=== PATIENT | female | born 1955 | race Caucasian/White ===

== ENCOUNTER → 2016-07-14 | Outpatient (REF) | payer OTHER | LOC: M SFHCPLAZ 15:35 | PROVIDERS: ATTEND Nurse Practitioner Adult Health | DX: R53.83 Other fatigue (principal) ==

== ENCOUNTER → 2016-08-29 | Outpatient (CLI) | payer OTHER ==
--- NOTE | 2016-08-29 16:58 | REP ---
Chest x-ray: Two views. History: Moderate, persistent asthma. . Comparison study: November 10, 2012 . Findings: The lungs are mildly hyper inflated and free of infiltrate. The pleural angles are sharp. The heart size is normal. Pulmonary vasculature is not increased. No significant bony abnormality is seen. Impression: Mild hyperinflation, otherwise negative chest x-ray. Signed by Dharmesh Hallman MD 08/29/2016 04:49 P
== END ==
LOC: M RAD 15:07
PROVIDERS: ATTEND Internal Medicine Pulmonary Disease
DX: J45.40 Moderate persistent asthma, uncomplicated (principal)

== ENCOUNTER → 2016-12-23 | Outpatient (REF) | payer OTHER | LOC: M SFHCPLAZ 17:24 | PROVIDERS: ATTEND Nurse Practitioner Adult Health | DX: J04.0 Acute laryngitis (principal) ==

== ENCOUNTER → 2017-05-27 | Outpatient (REF) | payer OTHER | LOC: M SFHCPLAZ 14:56 | PROVIDERS: ATTEND Internal Medicine | DX: E78.00 Pure hypercholesterolemia, unspecified (principal); J45.909 Unspecified asthma, uncomplicated; M85.80 Other specified disorders of bone density and structure, unspecified site; R94.6 Abnormal results of thyroid function studies; Z53.9 Procedure and treatment not carried out, unspecified reason ==

== ENCOUNTER → 2017-06-02 | Outpatient (REF) | payer OTHER ==
[2017-06-02 13:29] LABS: MEAN CORPUSCULAR HEMOGLOBIN 31.7 pg (27.0-33.0); MEAN CORPUSCULAR HGB CONC 33.2 g/dl (32.0-36.5); MEAN CORPUSCULAR VOLUME 95.7 fl (80.0-96.0); PLATELET COUNT, AUTOMATED 279 10^3/uL (150-450); RED CELL DISTRIBUTION WIDTH 12.7 % (11.5-14.5); WHITE BLOOD COUNT 4.3 10^3/uL (4.0-10.0)
[2017-06-02 13:50] LABS: ALBUMIN 4.2 GM/DL (3.2-5.2); ALKALINE PHOSPHATASE 85 U/L (45-117); ALT/SGPT 18 U/L (12-78); ANION GAP 8 MEQ/L (8-16); AST/SGOT 19 U/L (7-37); BILIRUBIN,TOTAL 0.5 MG/DL (0.2-1.0); BLOOD UREA NITROGEN 17 MG/DL (7-18); CARBON DIOXIDE LEVEL 29 MEQ/L (21-32); CHLORIDE LEVEL 108 MEQ/L (98-107); CHOLESTEROL LEVEL 220 MG/DL (<200); CREATININE FOR GFR 0.71 MG/DL (0.55-1.02); GLOMERULAR FILTRATION RATE > 60.0 (>45); GLUCOSE, FASTING 92 MG/DL (80-110); POTASSIUM SERUM 3.7 MEQ/L (3.5-5.1); SODIUM LEVEL 145 MEQ/L (136-145); TOTAL PROTEIN 7.2 GM/DL (6.4-8.2); TRIGLYCERIDES LEVEL 58 MG/DL (<150)
== END ==
LOC: M SFHCPLAZ 07:50
PROVIDERS: ATTEND Internal Medicine
DX: Z00.00 Encounter for general adult medical examination without abnormal findings (principal); E78.00 Pure hypercholesterolemia, unspecified; J45.909 Unspecified asthma, uncomplicated; R94.6 Abnormal results of thyroid function studies; M85.80 Other specified disorders of bone density and structure, unspecified site

== ENCOUNTER 2017-06-14 11:21 | Emergency (ER) | payer OTHER ==
[2017-06-14 11:57] LABS: BASO % 0.1 % (0.0-1.0); HEMATOCRIT 38.2 % (36.0-47.0); HEMOGLOBIN 12.9 g/dl (12.0-16.0); IMMATURE GRANULOCYTE # 0.1 10^3/uL (0-0); IMMATURE GRANULOCYTE % 0.5 % (0-0); LYMPH # 1.3 10^3/uL (1.5-4.5); LYMPH % 11.3 % (24.0-44.0); MEAN CORPUSCULAR HGB CONC 33.8 g/dl (32.0-36.5); MEAN CORPUSCULAR VOLUME 94.8 fl (80.0-96.0); MONO # 1.1 10^3/uL (0.0-0.8); MONO % 9.6 % (0.0-5.0); NEUTROPHILS # 9.1 10^3/uL (1.8-7.7); NEUTROPHILS % 78.5 % (36.0-66.0); PLATELET COUNT, AUTOMATED 194 10^3/uL (150-450); RED BLOOD COUNT 4.03 10^6/uL (4.00-5.40); RED CELL DISTRIBUTION WIDTH 12.5 % (11.5-14.5); WHITE BLOOD COUNT 11.6 10^3/uL (4.0-10.0)
[2017-06-14 12:09] LABS: INR 1.03; PROTHROMBIN TIME 13.7 SECONDS (12.4-14.5)
[2017-06-14 12:15] LABS: D-DIMER QUANT 521.3 ng/ml (<500)
[2017-06-14] MEDS: KETOROLAC 30 MG/ML VIAL (J1885) IV (12:24)
[2017-06-14] MEDS: NS 1,000 ML IV ×2 (12:25→14:42)
[2017-06-14] MEDS: METOCLOPRAMIDE INJ 10MG/2ML VIAL (J2765) IV (12:25)
[2017-06-14] MEDS: diphenhydrAMINE INJ 50MG/ML VIAL (J1200) IV (12:25)
[2017-06-14 12:26] LABS: ALBUMIN 3.4 GM/DL (3.2-5.2); ALBUMIN/GLOBULIN RATIO 0.97 (1.00-1.93); ALKALINE PHOSPHATASE 81 U/L (45-117); ALT/SGPT 13 U/L (12-78); ANION GAP 8 MEQ/L (8-16); AST/SGOT 11 U/L (7-37); BILIRUBIN,DIRECT 0.2 MG/DL (0.0-0.2); BILIRUBIN,TOTAL 0.8 MG/DL (0.2-1.0); BLOOD UREA NITROGEN 11 MG/DL (7-18); CALCIUM LEVEL 8.4 MG/DL (8.8-10.2); CARBON DIOXIDE LEVEL 29 MEQ/L (21-32); CHLORIDE LEVEL 105 MEQ/L (98-107); CPK CREATINE PHOSPHOKINASE 22 U/L (26-192); CREATININE FOR GFR 0.66 MG/DL (0.55-1.02); GLOMERULAR FILTRATION RATE > 60.0 (>45); GLUCOSE, FASTING 113 MG/DL (80-110); LIPASE 97 U/L (73-393); POTASSIUM SERUM 3.6 MEQ/L (3.5-5.1); SODIUM LEVEL 142 MEQ/L (136-145); TOTAL PROTEIN 6.9 GM/DL (6.4-8.2); TROPONIN I < 0.02 NG/ML (< 0.10)
[2017-06-14 12:31] LABS: MB/CK RELATIVE INDEX 4.54 (< OR =4); NT-PRO BNP 167 PG/ML (<125)
[2017-06-14] MEDS ORDERED: ISOVUE-370 76% 100ML VIAL (Q9967) As Ordered (13:34)
[2017-06-14] MEDS: MAG SULF 1GM/100ML (MAG RUN) 1 GM in APPROPRIATE DILUENT 1 EA IV (14:01)
[2017-06-14] MEDS: ACETAMINOPHEN TAB 650MG DOSE (2X325MG) PO (14:01)
== END 2017-06-14 16:43 | disposition home or self-care (01) ==
LOC: M ED 11:21
DX: R09.1 Pleurisy (principal); J18.9 Pneumonia, unspecified organism; G43.909 Migraine, unspecified, not intractable, without status migrainosus; J45.909 Unspecified asthma, uncomplicated; E78.00 Pure hypercholesterolemia, unspecified; Z82.49 Family history of ischemic heart disease and other diseases of the circulatory system; Z79.51 Long term (current) use of inhaled steroids; Z88.2 Allergy status to sulfonamides
CPT/HCPCS: J1200

== ENCOUNTER → 2018-04-12 | Outpatient (REF) | payer OTHER ==
[2018-04-12 15:43] LABS: BASO % 0.3 % (0.0-1.0); EOS % 0.2 % (0.0-3.0); HEMATOCRIT 42.7 % (36.0-47.0); HEMOGLOBIN 14.2 g/dl (12.0-15.5); IMMATURE GRANULOCYTE % 0.2 % (0-3.0); LYMPH # 1.5 10^3/uL (1.5-4.5); LYMPH % 23.9 % (24.0-44.0); MEAN CORPUSCULAR HEMOGLOBIN 32.3 pg (27.0-33.0); MEAN CORPUSCULAR HGB CONC 33.3 g/dl (32.0-36.5); MEAN CORPUSCULAR VOLUME 97.3 fl (80.0-96.0); MONO # 0.4 10^3/uL (0.0-0.8); MONO % 6.9 % (0.0-5.0); NEUTROPHILS # 4.4 10^3/uL (1.8-7.7); NEUTROPHILS % 68.5 % (36.0-66.0); PLATELET COUNT, AUTOMATED 254 10^3/uL (150-450); RED BLOOD COUNT 4.39 10^6/uL (4.00-5.40); RED CELL DISTRIBUTION WIDTH 12.4 % (11.5-14.5); WHITE BLOOD COUNT 6.4 10^3/uL (4.0-10.0)
[2018-04-12 16:09] LABS: ALBUMIN 4.3 GM/DL (3.2-5.2); ALBUMIN/GLOBULIN RATIO 1.48 (1.00-1.93); ALKALINE PHOSPHATASE 103 U/L (45-117); ALT/SGPT 16 U/L (12-78); ANION GAP 6 MEQ/L (8-16); AST/SGOT 17 U/L (7-37); BILIRUBIN,TOTAL 0.4 MG/DL (0.2-1.0); BLOOD UREA NITROGEN 14 MG/DL (7-18); CALCIUM LEVEL 9.9 MG/DL (8.8-10.2); CARBON DIOXIDE LEVEL 29 MEQ/L (21-32); CHLORIDE LEVEL 106 MEQ/L (98-107); CREATININE FOR GFR 0.76 MG/DL (0.55-1.30); FERRITIN 57 NG/ML (8-252); GLOMERULAR FILTRATION RATE > 60.0 (>45); GLUCOSE, FASTING 101 MG/DL (70-100); IRON (FE) 96 UG/DL (50-170); PERCENT SATURATION 25.9 % (13.2-45.0); POTASSIUM SERUM 3.9 MEQ/L (3.5-5.1); SODIUM LEVEL 141 MEQ/L (136-145); TOTAL IRON BINDING CAPACITY 370 UG/DL (250-450); TOTAL PROTEIN 7.2 GM/DL (6.4-8.2)
== END ==
LOC: M SFHCPLAZ 14:10
DX: K92.1 Melena (principal)

== ENCOUNTER → 2018-05-26 | Outpatient (REF) | payer OTHER ==
[2018-05-26 11:56] LABS: HEMATOCRIT 41.1 % (36.0-47.0); HEMOGLOBIN 13.6 g/dl (12.0-15.5); MEAN CORPUSCULAR HEMOGLOBIN 32.3 pg (27.0-33.0); MEAN CORPUSCULAR HGB CONC 33.1 g/dl (32.0-36.5); MEAN CORPUSCULAR VOLUME 97.6 fl (80.0-96.0); PLATELET COUNT, AUTOMATED 261 10^3/uL (150-450); RED BLOOD COUNT 4.21 10^6/uL (4.00-5.40); RED CELL DISTRIBUTION WIDTH 12.6 % (11.5-14.5); WHITE BLOOD COUNT 6.4 10^3/uL (4.0-10.0)
[2018-05-26 13:16] LABS: ALBUMIN/GLOBULIN RATIO 1.25 (1.00-1.93); ALKALINE PHOSPHATASE 114 U/L (45-117); ALT/SGPT 17 U/L (12-78); ANION GAP 8 MEQ/L (8-16); AST/SGOT 18 U/L (7-37); BILIRUBIN,TOTAL 0.4 MG/DL (0.2-1.0); BLOOD UREA NITROGEN 15 MG/DL (7-18); CALCIUM LEVEL 8.8 MG/DL (8.8-10.2); CARBON DIOXIDE LEVEL 29 MEQ/L (21-32); CHLORIDE LEVEL 105 MEQ/L (98-107); CHOLESTEROL LEVEL 200 MG/DL (<200); CHOLESTEROL RISK RATIO 2.702 (<5); CREATININE FOR GFR 0.76 MG/DL (0.55-1.30); GLOMERULAR FILTRATION RATE > 60.0 (>45); GLUCOSE, FASTING 89 MG/DL (70-100); HDL CHOLESTEROL 74 MG/DL (>40); LDL CHOLESTEROL 115 MG/DL (<100); NON-HDL-C 126 MG/DL; POTASSIUM SERUM 3.8 MEQ/L (3.5-5.1); SODIUM LEVEL 142 MEQ/L (136-145); TOTAL PROTEIN 7.2 GM/DL (6.4-8.2); TRIGLYCERIDES LEVEL 56 MG/DL (<150)
== END ==
LOC: M LABDRAW1 10:52
DX: Z00.00 Encounter for general adult medical examination without abnormal findings (principal); E78.00 Pure hypercholesterolemia, unspecified; J45.909 Unspecified asthma, uncomplicated; G43.909 Migraine, unspecified, not intractable, without status migrainosus; R94.6 Abnormal results of thyroid function studies
CPT/HCPCS: 83735

== ENCOUNTER → 2018-06-01 | Outpatient (REF) | payer OTHER ==
[~2018-06-01] MED LIST: DOXY100C37 PO; QVAR40AE13; RIZA10TA2
[2018-06-01 10:53] LABS: APPEARANCE, URINE CLEAR (CLEAR); BACTERIA, URINE AUTO NEGATIVE (NEGATIVE); BILIRUBIN, URINE AUTO NEGATIVE (NEGATIVE); BLOOD, URINE BLOOD NEGATIVE (NEGATIVE); COLOR, URINE STRAW (YELLOW); GLUCOSE, URINE (UA) AUTO NEGATIVE (NEGATIVE); KETONE, URINE AUTO NEGATIVE (NEGATIVE); LEUKOCYTE ESTERASE, URINE AUTO NEGATIVE (NEGATIVE); NITRITE, URINE AUTO NEGATIVE (NEGATIVE); PROTEIN, URINE AUTO NEGATIVE (NEGATIVE); RBC, URINE AUTO 1 /HPF (0-3); SPECIFIC GRAVITY URINE AUTO 1.004 (1.002-1.035); SQUAMOUS EPITHELIAL CELL UR AU 0 /HPF (0-6); UROBILINOGEN, URINE AUTO 0.2 mg/dL (0.0-2.0); WBC, URINE AUTO 0 /HPF (0-3)
== END ==
LOC: M SFHCPLAZ 08:45
PROVIDERS: ATTEND Internal Medicine
DX: R30.0 Dysuria (principal)

== ENCOUNTER 2018-07-26 07:56 | Day surgery (SDC) | payer OTHER ==
[~2018-07-26] VITALS: Ht 175.3 cm; Wt 60.3 kg
[~2018-07-26 07:56] MED LIST changes: +LIDOCAINE 2% INJ 100 MG/5 ML SDV (FOR ANES.) As Ordered ONE; +NS 1,000 ML IV ONE; +PROPOFOL 200 MG/20 ML VIAL As Ordered ONE; +QVAR40AE12 INH; -RIZA10TA2; +RIZA10TA2 PO
[2018-07-26] MEDS ORDERED: diphenhydrAMINE INJ 50MG/ML VIAL (J1200) As Ordered ONE (09:09)
[2018-07-26] MEDS ORDERED: diphenhydrAMINE INJ 50MG/ML VIAL (J1200) IV ONE (09:15)
--- NOTE | 2018-07-26 09:43 | ROOR ---
Patient Name: Regina Sharma Procedure Date: 07/26/2018 9:18 AM Date of : 1955 Age: 62 Room: [facility] Gender: Female Note Status: Finalized Procedure: Colonoscopy Indications: Rectal bleeding Providers: Rosalio FROST MD Referring MD: Bola Umaña MD Requesting Provider: Medicines: Monitored Anesthesia Care Complications: No immediate complications. Procedure: Pre-Anesthesia Assessment: - The heart rate, respiratory rate, oxygen saturations, blood pressure, adequacy of pulmonary ventilation, and response to care were monitored throughout the procedure. The Colonoscope was introduced through the anus and advanced to the terminal ileum, with identification of the appendiceal orifice and IC valve. The colonoscopy was performed without difficulty. The patient tolerated the procedure well. The quality of the bowel preparation was good. Findings: The perianal and digital rectal examinations were normal. Mild sigmoid diverticulosis and small internal hemorrhoids. A diminutive polyp was found in the sigmoid colon. The polyp was sessile. The polyp was removed with a cold snare. Resection and retrieval were complete. The exam was otherwise normal throughout the examined colon. Impression: - Mild sigmoid diverticulosis and small internal hemorrhoids. - One diminutive polyp in the sigmoid colon, removed with a cold snare. Resected and retrieved. - The exam was otherwise normal to the cecum. Recommendation: - Repeat colonoscopy in 5 years for surveillance. Rosalio Frost MD Rosalio FROST MD 07/26/2018 9:43:31 AM This report has been signed electronically. Number of Addenda: 0 Note Initiated On: 07/26/2018 9:18 AM Estimated Blood Loss: Estimated blood loss: none.
[2018-07-26 10:00] VITALS: BP 125/65
== END 2018-07-26 10:16 | disposition home or self-care (01) ==
LOC: M OPP 07:56
PROVIDERS: ATTEND Internal Medicine Gastroenterology
DX: K62.5 Hemorrhage of anus and rectum (principal); K63.5 Polyp of colon; K57.30 Diverticulosis of large intestine without perforation or abscess without bleeding; K64.8 Other hemorrhoids; R12 Heartburn; J45.909 Unspecified asthma, uncomplicated; Z88.0 Allergy status to penicillin; Z88.1 Allergy status to other antibiotic agents; Z88.2 Allergy status to sulfonamides; Z88.4 Allergy status to anesthetic agent; Z88.5 Allergy status to narcotic agent; Z88.8 Allergy status to other drugs, medicaments and biological substances; Z79.899 Other long term (current) drug therapy
CPT/HCPCS: 45385; 88305; J1200

== ENCOUNTER → 2018-09-10 | Outpatient (REF) | payer OTHER ==
[~2018-09-10] MED LIST changes: -LIDOCAINE 2% INJ 100 MG/5 ML SDV (FOR ANES.) As Ordered ONE; -NS 1,000 ML IV ONE; -PROPOFOL 200 MG/20 ML VIAL As Ordered ONE
== END ==
LOC: M SFHCPLAZ 17:12
PROVIDERS: ATTEND Dermatology
DX: L57.0 Actinic keratosis (principal); L82.1 Other seborrheic keratosis

== ENCOUNTER → 2018-10-15 | Outpatient (CLI) | payer OTHER ==
--- NOTE | 2018-10-15 13:26 | REPMRS ---
Patient History The patient states she has not had a clinical breast exam in over a year. Patient is postmenopausal. No known family history of cancer. Benign excisional biopsy of the left breast, 1977. Took hormonal contraceptives for 1 year. Took unspecified hormones for 1 year. 3D TOMOSYNTHESIS WAS PERFORMED. Digital Woman Screen Mammo: October 15, 2018 - Exam #: [id number] Bilateral CC and MLO view(s) were taken. Technologist: Юлия Azar, Technologist Prior study comparison: October 29, 2011, bilateral bilat screen digital mammo, performed at [facility] ([facility]). August 30, 2010, bilateral screening mammogram, performed at [facility] ([facility]). FINDINGS: The breast tissue is heterogeneously dense. This may lower the sensitivity of mammography. There has been no change in the appearance of the mammogram from the prior studies. There is a moderate amount of residual fibroglandular tissue which is fairly symmetric. There is no interval development of dominant mass, areas of architectural distortion, or clustered microcalcification typical of malignancy. Assessment: BI-RADS/ACR category 1 mammogram. Negative Mammogram. Recommendation Routine screening mammogram in 1 year (for women over age 40). This mammogram was interpreted with the aid of an FDA-approved computer-aided dectection system. Electronically Signed By: Vin Faustin MD 10/15/18 [id number]
== END ==
LOC: M WHC 11:05
PROVIDERS: ATTEND Internal Medicine
DX: Z12.31 Encounter for screening mammogram for malignant neoplasm of breast (principal); Z78.0 Asymptomatic menopausal state; Z92.0 Personal history of contraception; Z92.23 Personal history of estrogen therapy

== ENCOUNTER → 2019-06-03 | Outpatient (CLI) | payer MEDICARE, OTHER ==
--- NOTE | 2019-06-03 14:41 | REP ---
PELVIC SONOGRAPHY: HISTORY: Pelvic pain. The patient reports surgical history including left oophorectomy in the past and partial right oophorectomy. History of endometriosis. FINDINGS: Transabdominal and transvaginal scanning are performed. Uterine dimensions are normal at 6.0 x 2.4 x 4.4 cm. Endometrial echo 0.3 cm thick and centrally placed. Neither ovary could be identified sonographically on transabdominal or transvaginal scanning. No free fluid is seen. There is a 1.5 x 1.7 x 1.5 cm hypoechoic area in the left side of the uterus consistent with a small fibroid. Visualized bladder roy are smooth. IMPRESSION: Small fibroid. No adnexal mass or cyst is seen. Neither ovary could be directly visualized. There is a history of oophorectomy. Electronically Signed by Dharmesh Hallman MD 06/03/2019 03:16 P
== END ==
LOC: M RAD 11:51
PROVIDERS: ATTEND Internal Medicine
DX: R10.2 Pelvic and perineal pain (principal); Z90.721 Acquired absence of ovaries, unilateral
CPT/HCPCS: 76830; 76856; 90670; G0009; G0402; G0463

== ENCOUNTER → 2020-05-31 | Outpatient (REF) | payer MEDICARE, OTHER ==
[2020-05-31 12:02] LABS: HEMATOCRIT 40.3 % (36.0-47.0); HEMOGLOBIN 13.1 g/dl (12.0-15.5); MEAN CORPUSCULAR HEMOGLOBIN 32.6 pg (27.0-33.0); MEAN CORPUSCULAR HGB CONC 32.5 g/dl (32.0-36.5); MEAN CORPUSCULAR VOLUME 100.2 fl (80.0-96.0); PLATELET COUNT, AUTOMATED 254 10^3/uL (150-450); RED BLOOD COUNT 4.02 10^6/uL (4.00-5.40); WHITE BLOOD COUNT 5.4 10^3/uL (4.0-10.0)
[2020-05-31 14:02] LABS: ALBUMIN 3.7 GM/DL (3.2-5.2); ALT/SGPT 16 U/L (12-78); BILIRUBIN,TOTAL 0.4 MG/DL (0.2-1.0); BLOOD UREA NITROGEN 14 MG/DL (7-18); CALCIUM LEVEL 9.1 MG/DL (8.8-10.2); CARBON DIOXIDE LEVEL 30 MEQ/L (21-32); CHLORIDE LEVEL 106 MEQ/L (98-107); CHOLESTEROL LEVEL 217 MG/DL (<200); CHOLESTEROL RISK RATIO 3.013 (<5); CREATININE FOR GFR 0.72 MG/DL (0.55-1.30); GLOMERULAR FILTRATION RATE > 60.0 (>45); GLUCOSE, FASTING 90 MG/DL (70-100); HDL CHOLESTEROL 72 MG/DL (>40); LDL CHOLESTEROL 136 MG/DL (<100); NON-HDL-C 145 MG/DL; SODIUM LEVEL 142 MEQ/L (136-145); TOTAL 25(OH) VITAMIN D 24.5 NG/ML (30.0-100.0); TOTAL PROTEIN 6.6 GM/DL (6.4-8.2); TRIGLYCERIDES LEVEL 43 MG/DL (<150)
== END ==
LOC: M SFHCCLAY 08:37
PROVIDERS: ATTEND Internal Medicine
DX: K21.9 Gastro-esophageal reflux disease without esophagitis (principal); E78.00 Pure hypercholesterolemia, unspecified; R94.6 Abnormal results of thyroid function studies; M85.80 Other specified disorders of bone density and structure, unspecified site

== ENCOUNTER → 2020-09-27 | Outpatient (CLI) | payer MEDICARE, OTHER ==
--- NOTE | 2020-09-27 09:03 | REPMRS ---
Patient History The patient states she had a clinical breast exam in 06/03 Patient is postmenopausal. No known family history of cancer. Benign excisional biopsy of the left breast, 1977. Took hormonal contraceptives for 1 year. Took unspecified hormones for 1 year. Digital Woman Screen Mammo: September 27, 2020 - Exam #: [id number] Bilateral CC and MLO view(s) were taken. Technologist: Юлия Azar, Technologist Prior study comparison: October 15, 2018, bilateral digital woman screen mammo performed at [facility] [place]. October 29, 2011, bilateral bilat screen digital mammo, performed at [facility] ([facility]). August 30, 2010, bilateral screening mammogram, performed at [facility] ([facility]). FINDINGS: There are scattered fibroglandular densities. The Volpara volumetric breast density category is: B. There is a moderate amount of residual fibroglandular tissue which is fairly symmetric. There is no interval development of dominant mass, architectural distortion, or grouped microcalcification typical of malignancy. There has been no change in the appearance of the mammogram from the prior studies. 3-D tomosynthesis shows no additional findings. Assessment: BI-RADS/ACR category 1 mammogram. Negative Mammogram. Recommendation Routine screening mammogram of both breasts in 1 year (for women over age 40). This patient's [facility] Lifetime Breast Cancer RIsk is estimated at 5.0 %. This mammogram was interpreted with the aid of an FDA-approved computer-aided dectection system. Electronically Signed By: David Hallman MD 09/27/20 0902
--- NOTE | 2020-09-27 09:19 | DEXAMM ---
INDICATION: M85.80 OSTEOPENIA. COMPARISON: 03/03/2012 as well as other prior exams. TECHNIQUE: Bone density was measured using dual-energy x-ray absorptiometry (DEXA). FINDINGS: AP SPINE L1-L4 BMD 0.955 g/cm2 Young Adult T-Score -1.9 Age Matched Z-Score -0.3. LT FEMUR, TOTAL BMD 0.834 g/cm2 Young Adult T-Score -1.4 Age Matched Z-Score -0.1. LT NECK BMD 0.794 g/cm2 Young Adult T-Score -1.8 Age Matched Z-Score -0.2. RT FEMUR, TOTAL BMD 0.902 g/cm2 Young Adult T-Score -0.8 Age Matched Z-Score 0.4. RT NECK BMD 0.861 g/cm2 Young Adult T-Score -1.3 Age Matched Z-Score 0.3. IMPRESSION: There is low bone density of the spine. There is low bone density of the left hip. There is low bone density of the right hip. The density of the spine has decreased 22.5% since the initial exam on 01/13/2002. The density of the spine decreased 5.4% since most recent exam on 03/03/2012. The density of the left hip has decreased 18.6% since initial exam on 01/13/2002. The density of the left hip has decreased 6.2% since most recent exam on 03/03/2012. The density of the right hip has decreased 16.2% since the initial exam on 01/13/2002. The density of the right hip has decreased 4.7% since the most recent exam on 03/03/2012. FOLLOW-UP: Recommendation for the next bone density exam: 2 years. <Electronically signed by iVn Faustin > 09/27/20 0916
== END ==
LOC: M WHC 06:41
PROVIDERS: ATTEND Internal Medicine
DX: Z12.31 Encounter for screening mammogram for malignant neoplasm of breast (principal); M85.80 Other specified disorders of bone density and structure, unspecified site; Z78.0 Asymptomatic menopausal state; Z86.018 Personal history of other benign neoplasm; Z92.0 Personal history of contraception; Z92.29 Personal history of other drug therapy

== ENCOUNTER 2021-01-22 11:40 | Emergency (ER) | payer MEDICARE, OTHER ==
[~2021-01-22] VITALS: Ht 172.7 cm; Wt 61.4 kg
[~2021-01-22 11:40] MED LIST changes: -DOXY100C37 PO; +DOXY1CAP62 PO
--- NOTE | 2021-01-22 12:14 | REP ---
INDICATION: CHEST PAIN. COMPARISON: Portable chest dated 06/14/2017. TECHNIQUE: Portable AP chest with the patient sitting.. FINDINGS: The lung garcia are clear. Cardiac size is normal. The cedric, mediastinum and skeletal structures are unremarkable. IMPRESSION: Essentially negative portable chest <Electronically signed by Vin Uribe > 01/22/21 1210
[2021-01-22 12:16] LABS: BASO % 0.4 % (0.0-1.0); EOS % 0.4 % (0.0-3.0); HEMATOCRIT 43.2 % (36.0-47.0); HEMOGLOBIN 14.2 g/dl (12.0-15.5); LYMPH # 1.6 10^3/uL (1.5-5.0); LYMPH % 29.1 % (24.0-44.0); MEAN CORPUSCULAR HEMOGLOBIN 32.3 pg (27.0-33.0); MEAN CORPUSCULAR HGB CONC 32.9 g/dl (32.0-36.5); MEAN CORPUSCULAR VOLUME 98.4 fl (80.0-96.0); MONO # 0.6 10^3/uL (0.0-0.8); MONO % 10.9 % (2.0-8.0); NEUTROPHILS # 3.2 10^3/uL (1.5-8.5); NEUTROPHILS % 58.8 % (36.0-66.0); PLATELET COUNT, AUTOMATED 229 10^3/uL (150-450); RED BLOOD COUNT 4.39 10^6/uL (4.00-5.40); WHITE BLOOD COUNT 5.5 10^3/uL (4.0-10.0)
[2021-01-22 12:27] LABS: INR 0.9; PROTHROMBIN TIME 12.5 SECONDS (12.7-14.5)
[2021-01-22 12:42] LABS: ALT/SGPT 21 U/L (12-78); BILIRUBIN,DIRECT 0.1 MG/DL (0.0-0.2); BILIRUBIN,TOTAL 0.4 MG/DL (0.2-1.0); BLOOD UREA NITROGEN 13 MG/DL (7-18); CALCIUM LEVEL 8.8 MG/DL (8.8-10.2); CARBON DIOXIDE LEVEL 27 MEQ/L (21-32); CHLORIDE LEVEL 110 MEQ/L (98-107); CK-MB VALUE MASS < 1.0 NG/ML (<3.6); CPK CREATINE PHOSPHOKINASE 59 U/L (26-192); CREATININE FOR GFR 0.73 MG/DL (0.55-1.30); GLOMERULAR FILTRATION RATE > 60.0 (>45); GLUCOSE, FASTING 97 MG/DL (70-100); LIPASE 193 U/L (73-393); MB/CK RELATIVE INDEX 1.69 (< OR =4); POTASSIUM SERUM 3.6 MEQ/L (3.5-5.1); SODIUM LEVEL 142 MEQ/L (136-145); TOTAL PROTEIN 7.1 GM/DL (6.4-8.2); TROPONIN I < 0.02 NG/ML (< 0.10)
--- NOTE | 2021-01-22 13:42 | REP ---
INDICATION: left scapular pain. COMPARISON: None. TECHNIQUE: Two views FINDINGS: There is no evidence of an acute fracture or destructive osseous lesion. IMPRESSION: Within normal limits <Electronically signed by Cordell Oneill > 01/22/21 [id number]
[2021-01-22 13:45] VITALS: BP 128/58
--- NOTE | 2021-01-23 07:07 | ECGEPIP ---
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
== END 2021-01-22 14:48 | disposition home or self-care (01) ==
LOC: M ED 11:40
DX: R07.9 Chest pain, unspecified (principal); M25.512 Pain in left shoulder; J45.909 Unspecified asthma, uncomplicated; E78.5 Hyperlipidemia, unspecified; Z88.0 Allergy status to penicillin; Z88.1 Allergy status to other antibiotic agents; Z88.2 Allergy status to sulfonamides; Z88.5 Allergy status to narcotic agent; Z88.8 Allergy status to other drugs, medicaments and biological substances; Z91.018 Allergy to other foods

== ENCOUNTER → 2021-01-25 | Outpatient (CLI) | payer MEDICARE, OTHER ==
--- NOTE | 2021-01-25 10:05 | REP ---
INDICATION: CONTSION TO RT FOOT. COMPARISON: None. TECHNIQUE: Unenhanced scans FINDINGS: There is soft tissue swelling on the medial aspect of the forefoot anterior to the 1st and 2nd meta tarsals. Within this area of soft tissue swelling is a focal area of increased attenuation measuring 4 x 1.5 x 2.8 cm which is oval in shape and has an appearance consistent with hematoma. There are no fractures. There are degenerative changes of the 1st metatarsal phalangeal joint the other joints are unremarkable. Plantar fascia normal. IMPRESSION: Soft tissue swelling medial aspect dorsum of the foot with focal hematoma. No bony injury. Degenerative change 1st metatarsophalangeal joint. <Electronically signed by Clarence Neves > 01/25/21 1005
== END ==
LOC: M RAD 09:19
PROVIDERS: ATTEND Physician Assistant Surgical
DX: S90.31XA Contusion of right foot, initial encounter (principal)

== ENCOUNTER → 2021-05-28 | Outpatient (REF) | payer MEDICARE, OTHER ==
[~2021-05-28] MED LIST changes: +DOXY-443 PO; -DOXY1CAP62 PO
[2021-05-28 12:02] LABS: BASO % 0.7 % (0.0-1.0); EOS # 0.1 10^3/uL (0.0-0.5); EOS % 1.3 % (0.0-3.0); HEMATOCRIT 42.5 % (36.0-47.0); HEMOGLOBIN 13.8 g/dl (12.0-15.5); LYMPH # 2.4 10^3/uL (1.5-5.0); LYMPH % 44.3 % (24.0-44.0); MEAN CORPUSCULAR HEMOGLOBIN 32.1 pg (27.0-33.0); MEAN CORPUSCULAR HGB CONC 32.5 g/dl (32.0-36.5); MEAN CORPUSCULAR VOLUME 98.8 fl (80.0-96.0); MONO # 0.6 10^3/uL (0.0-0.8); MONO % 10.7 % (2.0-8.0); NEUTROPHILS # 2.3 10^3/uL (1.5-8.5); NEUTROPHILS % 42.6 % (36.0-66.0); PLATELET COUNT, AUTOMATED 254 10^3/uL (150-450); WHITE BLOOD COUNT 5.4 10^3/uL (4.0-10.0)
[2021-05-28 12:46] LABS: ALBUMIN 3.9 GM/DL (3.2-5.2); ALT/SGPT 20 U/L (12-78); BILIRUBIN,TOTAL 0.6 MG/DL (0.2-1.0); BLOOD UREA NITROGEN 16 MG/DL (7-18); CALCIUM LEVEL 9.4 MG/DL (8.8-10.2); CARBON DIOXIDE LEVEL 30 MEQ/L (21-32); CHLORIDE LEVEL 108 MEQ/L (98-107); CHOLESTEROL LEVEL 203 MG/DL (<200); CHOLESTEROL RISK RATIO 2.636 (<5); CREATININE FOR GFR 0.72 MG/DL (0.55-1.30); GLOMERULAR FILTRATION RATE > 60.0 (>45); GLUCOSE, FASTING 88 MG/DL (70-100); HDL CHOLESTEROL 77 MG/DL (>40); LDL CHOLESTEROL 113 MG/DL (<100); NON-HDL-C 126 MG/DL; POTASSIUM SERUM 4.4 MEQ/L (3.5-5.1); SODIUM LEVEL 143 MEQ/L (136-145); TRIGLYCERIDES LEVEL 67 MG/DL (<150)
== END ==
LOC: M SFHCCLAY 08:30
PROVIDERS: ATTEND Internal Medicine
DX: J45.909 Unspecified asthma, uncomplicated (principal); E78.00 Pure hypercholesterolemia, unspecified; R94.6 Abnormal results of thyroid function studies; Z11.59 Encounter for screening for other viral diseases
CPT/HCPCS: 80053; 80061; 84443; 85025; G0472

== ENCOUNTER → 2022-09-17 | Outpatient (CLI) | payer MEDICARE, OTHER ==
[2022-09-17 17:14] LABS: C REACTIVE PROTEIN QUANTITATIV < 0.40 MG/DL (<1.0)
[2022-09-17 17:15] LABS: ALBUMIN 4.2 G/DL (3.2-5.2); ALKALINE PHOSPHATASE 90 U/L (46-116); ALT/SGPT 19 U/L (7.0-40); AST/SGOT 20 U/L (<34); BILIRUBIN,TOTAL 0.5 MG/DL (0.3-1.2); BLOOD UREA NITROGEN 13 MG/DL (9-23); CALCIUM LEVEL 9.4 MG/DL (8.3-10.6); CARBON DIOXIDE LEVEL 29 MMOL/L (20-31); CHLORIDE LEVEL 107 MMOL/L (98-107); CHOLESTEROL LEVEL 218 MG/DL (<200); CHOLESTEROL RISK RATIO 2.91 (<5); CREATININE FOR GFR 0.72 MG/DL (0.55-1.30); GLOMERULAR FILTRATION RATE > 60.0 (>45); GLUCOSE, FASTING 91 MG/DL (74-106); HDL CHOLESTEROL 74.8 MG/DL (>40); LDL CHOLESTEROL 132.4 MG/DL (<100); NON-HDL-C 143.2 MG/DL; POTASSIUM SERUM 4.7 MMOL/L (3.5-5.1); SODIUM LEVEL 141 MMOL/L (136-145); TRIGLYCERIDES LEVEL 54 MG/DL (<150)
[2022-09-17 17:16] LABS: THYROID STIMULATING HORMONE 4.356 uIU/ML (0.55-4.78); TOTAL 25(OH) VITAMIN D 28.1 NG/ML (20.0-100.0); VITAMIN B12 LEVEL 393 PG/ML (211-911)
[2022-09-17 17:17] LABS: FREE T4 1.12 NG/DL (0.89-1.76)
[2022-09-17 17:19] LABS: HEMATOCRIT 41.8 % (36.0-47.0); HEMOGLOBIN 13.8 g/dl (12.0-15.5); MEAN CORPUSCULAR HEMOGLOBIN 32.2 pg (27.0-33.0); MEAN CORPUSCULAR VOLUME 97.4 fl (80.0-96.0); PLATELET COUNT, AUTOMATED 253 10^3/uL (150-450); RED BLOOD COUNT 4.29 10^6/uL (4.00-5.40); WHITE BLOOD COUNT 5.7 10^3/uL (4.0-10.0)
[2022-09-17 17:28] LABS: PROTHROMBIN TIME 13.4 SECONDS (12.5-14.5)
[2022-09-17 17:29] LABS: PARTIAL THROMBOPLASTIN TIME 27.5 SECONDS (24.8-34.2)
[2022-09-17 17:35] LABS: CREATININE, URINE 24.2 MG/DL; MALB URINE SIEMENS < 3.0 MG/L; MAU/CREAT RATIO 12.3 MCG/MG (0.0-30.0)
[2022-09-17 17:54] LABS: HEMOGLOBIN A1c 5.3 % (4.0-6.0)
[2022-09-20 03:08] LABS: FACTOR 8 RISTOCETIN COFACTOR 157 % (50-200); FACTOR VIII ACTIVITY 124 % (56-140); FACTOR VIII AG (VON WILLEBRAN) 167 % (50-200); HERPES ZOSTER, VARICELLA IgG >4000 index (Immune >165)
== END ==
LOC: M PLALAB 15:13
PROVIDERS: ATTEND Internal Medicine Hematology
DX: M85.80 Other specified disorders of bone density and structure, unspecified site (principal); E78.00 Pure hypercholesterolemia, unspecified; Z79.899 Other long term (current) drug therapy